=== PATIENT | male | born 1965 | race Caucasian/White ===

== ENCOUNTER 2019-02-20 18:44 | Inpatient (IN) | payer OTHER ==
--- NOTE | 2019-02-20 19:21 | PDOC ---
History of Present Illness - General Chief Complaint: Blood Pressure Problem Stated Complaint: STROKE - History of Present Illness Initial Comments: 02/20/19 19:27 53 year old man with no signif past medical history presents with a 15 min episode of confusion, slurred speech, L facial droop and R hand numbness that occurred after he watched a disturbing video related to the passing of his son. His reports that he got worked up and started crying and that he became confused. The son noticed the facial droop and the weakness. The symptoms completely resolved after 15 min. The patient currently denies any other symptoms. ROS GENERAL/CONSTITUTIONAL: No fever or chills. No weakness. HEAD, EYES, EARS, NOSE AND THROAT: No sore throat. CARDIOVASCULAR: No chest pain or shortness of breath RESPIRATORY: No cough, wheezing, or hemoptysis. GASTROINTESTINAL: No nausea, vomiting, diarrhea or constipation. GENITOURINARY: No dysuria, frequency, or change in urination. MUSCULOSKELETAL: No joint or muscle swelling or pain. No neck or back pain. SKIN: No rash NEUROLOGIC: No headache, vertigo, loss of consciousness, or change in strength/ sensation. PE GENERAL: Awake, alert, and fully oriented, in no acute distress HEAD: No signs of trauma, normocephalic, atraumatic EYES: PERRLA, + L pupil 2mm, + R pupil 3mm, EOMI, sclera anicteric, conjunctiva clear ENT: ropharynx clear without exudates. Moist mucosa NECK: Normal ROM, supple LUNGS: No distress, speaks full sentences, clear to auscultation bilaterally HEART: Regular rate and rhythm, normal S1 and S2, no murmurs, rubs or gallops, peripheral pulses normal and equal bilaterally. ABDOMEN: Soft, nontender. No guarding, no rebound. No masses EXTREMITIES : Normal inspection, Normal range of motion, no edema. No clubbing or cyanosis. NEUROLOGICAL: Cranial nerves II through XII grossly intact. Normal speech, normal gait, no focal sensorimotor deficits, no sensation deficit on the face, arms or legs. no ataxia on finger to nose or walking, SKIN: Warm, Dry, normal turgor, no rashes or lesions noted MDM DDX including but not limited to: TIA r/o CVA Scores: ABCD2 score of 4 ED Course: Stroke work up bp repeat 165/122 In regards to pupil discrepancy, he reports he had a nail to the L eye previously, however reports that his pupils do not normally look unequal EKG: nsr at 79bpm, T wave inversion, v3,v4,v5 (prior ekg noted nonspecifc t wave changes) CT: with no acute pathology CXR: no noted infiltrate or ptx Dr. Crain consulted, discussed recommends crestor, and full dose ASA and admit for MRI in the AM microblog sent, plan for admission Minoo Walker, PGY2 Emergency Medicine 02/20/19 20:39 tPA Exclusion Checklist 0-3hr - Time Elapsed Date last known well: 02/20/19 Time last known well: 18:30 Elaspsed time: Day(s) and 2 Hour(s) and 8 Minutes - Thrombolytic Therapy Candidate Is the patient eligible for Thrombolytic Therapy?: Yes - Exclusion Criteria 0-3hr SBP greater than 185 or DBP greater than 110mmHg despite tx: Yes Recent IC/spinal surgery,head trauma or stroke w/in last 3mo: No Hx of previous IC hemorrhage, IC neoplasm, AVM or aneurysm: No Active internal bleeding: No Blding diathesis(low plt ct, inc PTT,INR>1.7 or use of NOAC): No Symptoms suggest subarachnoid hemorrhage: No CT demonstrates multilobar infarct(>1/3 cerebral hemiphere): No Arterial puncture at noncompressible site in previous 7 days: No Blood glucose concentration less than 50mg/dL (2.7mmol/L): No - Relative Exclusion Criteria 0-3h : No Patient/family refused: No Rapid improvement: Yes Stroke severity too mild: Yes Recent acute OH (w/in previous 3 months): No Seizure at onset with postictal residual neuro impairments: No Major surgery or serious trauma w/in previous 14 days: No Recent GI or hemorrhage (w/in previous 21 days): No - Ineligibility reason(s) Reasons No tPA given: See reason(s) noted above NIH Stroke Scale - Last Known Well Date/Time & Onset Date Last Known Well: 02/20/19 Time Last Known Well: 18:30 - Initial Evaluation Level of consciousness: Alert Ask patient the month and their age: Answers both correctly Ask patient to open & close eyes; make fist and let go: Obeys both correctly Best gaze (horizontal eye movement): Normal Visual field testing: No visual field loss Facial paresis (Show teeth/raise eyebrows/close eyes tight): Normal symmetrical movement Motor Function: Left Arm: Normal Motor Function: Right Arm: Normal (extends arm 90 (or 45) degrees for 10 seconds without drift Motor Function: Left Leg: Normal (extends leg 30 degrees for 5 seconds without drift) Motor Function: Right Leg: Normal (extends leg 30 degrees for 5 seconds without drift) Limb Ataxia: No ataxia Sensory(Use pinprick test arms,legs,trunk,face/side to side): Normal Best language (Describe picture, name items, read sentences): No Aphasia Dysarthria (read several words): Normal articulation Extinction and Inattention: No abnormality - Total Score NIH Stroke Scale Score: 0 Past History - Past Medical History Allergies/Adverse Reactions: Allergies Allergy/AdvReac Type Severity Reaction Status Date / Time No Known Allergies Allergy Verified 03/29/14 18:22 Home Medications: Ambulatory Orders Celecoxib [Celebrex] 200 mg PO DAILY 12/29/13 Cyclobenzaprine HCl [Flexeril -] 10 mg PO TID 12/29/13 Fluticasone Propionate [Flovent Hfa] 10.6 gm IH PRN PRN 12/29/13 Metaxalone [Skelaxin] 800 mg PO TID 12/29/13 Mobile-3 Acid Ethyl Esters [Lovaza -] 1,000 mg PO TID 12/29/13 Ranitidine [Zantac -] 150 mg PO DAILY 12/29/13 Clonidine HCl 0.5 mg PO BID 03/29/14 Nortriptyline HCl [Pamelor -] 10 mg PO HS 03/29/14 Asthma: Yes COPD: No HTN: Yes (Only "white coat hypertension" !!, no meds.) Psychiatric Problems: Yes (PTSD, ANXIETY) - Psycho Social/Smoking Cessation Hx Smoking History: Unknown if ever smoked Have you smoked in the past 12 months: No Information on smoking cessation initiated: No Hx Alcohol Use: No Drug/Substance Use Hx: No Substance Use Type: None *Physical Exam - Vital Signs Last Vital Signs Temp Pulse Resp BP Pulse Ox 90 18 202/94 H 98 02/20/19 18:58 02/20/19 18:58 02/20/19 18:58 02/20/19 18:58 Vital Signs - Vital Signs #1 Time: 19:25 Blood Pressure: 165/122 BP Location: Left Arm Blood Pressure Position: Sitting ED Treatment Course - LABORATORY CBC & Chemistry Diagram: 02/20/19 19:30 02/20/19 19:30
[2019-02-20 19:55] LABS: BASO % 0.6 % (0-2.0); HEMATOCRIT 46.2 % (35.4-49); HEMOGLOBIN 15.4 GM/dL (11.7-16.9); LYMPH % 23.3 % (8-40); MCH 29.6 pg (25.7-33.7); MCHC 33.3 g/dl (32.0-35.9); MEAN CELL VOLUME 88.9 fl (80-96); MEAN PLT VOLUME 8.9 fl (7.5-11.1); MONO % 7.1 % (3.8-10.2); PLATELET COUNT 245 K/MM3 (134-434); RDW 13.8 % (11.9-15.9); WHITE BLOOD COUNT 8.2 K/mm3 (4.0-10.0)
--- NOTE | 2019-02-20 20:08 | PDOC ---
Attending Attestation - Resident Resident Name: Minoo Walker - ED Attending Attestation I have performed the following: I have examined & evaluated the patient, The case was reviewed & discussed with the resident, I agree w/resident's findings & plan - HPI HPI: 02/20/19 20:06 see resident hpi - Physicial Exam PE: 02/20/19 20:06 agree with resident exam - Medical Decision Making [id number] male with right arm weakness and aphasia and left facial droop witnessed by family, now improved Code licea activated on arrival CT scan of the brain is negative Plan for neurology phone consultation and admission to medical service Patient is now with muscle strength 5 out of 5 all extremities, sensory intact There is minimal left lower lid droop on exam
[2019-02-20] MEDS ORDERED: ROSUVASTATIN CA 5 MG TABLET (FP) PO ONE (20:16)
[2019-02-20] MEDS ORDERED: ASPIRIN 81 MG CHEWABLE TABLETS PO ONE (20:17)
[2019-02-20] MEDS ORDERED: ASPIRIN 81 MG CHEWABLE TABLETS ONE (20:27)
[2019-02-20 20:32] LABS: ALK PHOS 74 U/L (45-117); ANION GAP 6 MMOL/L (8-16); BILIRUBIN,TOTAL 0.3 mg/dL (0.2-1); BLOOD UREA NITROGEN 17.4 mg/dL (7-18); CHLORIDE 107 mmol/L (98-107); CHOLESTEROL 170 mg/dL (50-200); CO2 27 mmol/L (21-32); CREATININE 0.9 mg/dL (0.55-1.3); GLUCOSE,RANDOM 146 mg/dL (74-106); HDL CHOLESTEROL 43 mg/dL (40-60); LDL CHOLESTEROL (ONLY SJRH) 112 mg/dL (5-100); POTASSIUM 4.1 mmol/L (3.5-5.1); SGOT/AST 15 U/L (15-37); SGPT/ALT 34 U/L (13-61); SODIUM 140 mmol/L (136-145); TRIGLYCERIDES 90 mg/dL (0-150)
--- NOTE | 2019-02-20 20:57 | CON.NEURO ---
Consult Consult Specialty:: Dorota Referred by:: ER - History of Present Illness History of Present Illness: 53 year sold man with PMH CAD HTN and back pain came in with facial weakness and arm weakness [facility] NIHSS was zero BP slightly high admitted for observation No TPA - Alcohol/Substance Use Hx Alcohol Use: No - Smoking History Smoking history: Unknown if ever smoked Have you smoked in the past 12 months: No Home Medications - Allergies Allergies/Adverse Reactions: Allergies Allergy/AdvReac Type Severity Reaction Status Date / Time No Known Allergies Allergy Verified 03/29/14 18:22 - Home Medications Home Medications: Ambulatory Orders Fluticasone Propionate [Flovent Hfa] 10.6 gm IH PRN PRN 12/29/13 Physical Exam-Neuro Vital Signs: Vital Signs Temperature Pulse Rate 76 02/20/19 20:25 Respiratory Rate 20 02/20/19 20:25 Blood Pressure 165/122 H 02/20/19 20:40 O2 Sat by Pulse Oximetry (%) 98 02/20/19 20:25 Labs: CBC, BMP 02/20/19 19:30 02/20/19 19:30 - Neuro Exam Level Of Consciousness: Yes: Oriented to Person, Oriented to Place, Oriented to Time Eyes: Yes: PERRLA Speech: WNL Dominant Hand: Right Cranial Nerves II-XII Intact: Yes Gag: Present Response to light touch: Normal Response to pain prick: Normal Response to temperature: Normal Response to vibration: Normal Motor Strength: 3/5: Right Arm, Left Leg, Right Leg, Left Arm Imaging - Results Cat Scan: Image Reviewed Problem List - Problems (1) CVA (cerebral vascular accident) Assessment/Plan: ?? [place] cVA MRI brain no Paramjit ASA Statin TCD as utpatient Thanks Marlen Raya MD Code(s): I63.9 - CEREBRAL INFARCTION, UNSPECIFIED
[2019-02-20 21:29] LABS: URINE APPEARANCE CLEAR; URINE BILIRUBIN NEGATIVE (NEGATIVE); URINE COLOR YELLOW; URINE GLUCOSE (UA) NEGATIVE (NEGATIVE); URINE KETONE TRACE (NEGATIVE); URINE LEUK ESTERASE NEGATIVE (NEGATIVE); URINE NITRITE NEGATIVE (NEGATIVE); URINE PROTEIN NEGATIVE (NEGATIVE)
--- NOTE | 2019-02-20 21:49 | HP ---
Admitting History and Physical - Primary Care Physician PCP: Dr. García - Admission Chief Complaint: BP elevated, slurred speech, left side facial drop History of Present Illness: 53 year old man with h/o of Asthma, GERD, Migraine, ? white coat syndrome ( denies taking any medication, BP never high at home) noted today with a 15 min episode of confusion, slurred speech, L facial droop and R hand numbness that occurred after he watched a disturbing video related to the passing of his son. /son present and noted with changes. The symptoms completely resolved after 15 min. The patient currently denies any other symptoms. History Source: Patient, Family Member Limitations to Obtaining History: No Limitations - Past Medical History Cardiovascular: Yes: HTN (" white coat syndrome" Only) Pulmonary: Yes: Asthma Gastrointestinal: Yes: GERD - Past Surgical History Past Surgical History: Yes: None - Smoking History Smoking history: Unknown if ever smoked Have you smoked in the past 12 months: No - Alcohol/Substance Use Hx Alcohol Use: No History of Substance Use: reports: None - Social History Usual Living Arrangement: Yes: With Spouse ADL: Independent Home Medications - Allergies Allergies/Adverse Reactions: Allergies Allergy/AdvReac Type Severity Reaction Status Date / Time No Known Allergies Allergy Verified 03/29/14 18:22 - Home Medications Home Medications: Ambulatory Orders Celecoxib [Celebrex] 200 mg PO DAILY 12/29/13 Cyclobenzaprine HCl [Flexeril -] 10 mg PO TID 12/29/13 Fluticasone Propionate [Flovent Hfa] 10.6 gm IH PRN PRN 12/29/13 Metaxalone [Skelaxin] 800 mg PO TID 12/29/13 Amberson-3 Acid Ethyl Esters [Lovaza -] 1,000 mg PO TID 12/29/13 Ranitidine [Zantac -] 150 mg PO DAILY 12/29/13 Clonidine HCl 0.5 mg PO BID 03/29/14 Nortriptyline HCl [Pamelor -] 10 mg PO HS 03/29/14 Family Medical History Family History: Denies Review of Systems - Review of Systems Constitutional: reports: No Symptoms Eyes: reports: No Symptoms HENT: reports: No Symptoms Neck: reports: No Symptoms Cardiovascular: reports: No Symptoms Respiratory: reports: No Symptoms Gastrointestinal: reports: No Symptoms Genitourinary: reports: No Symptoms Musculoskeletal: reports: No Symptoms Integumentary: reports: No Symptoms Neurological: reports: Change in Speech (slurred speech), Confusion, Numbness ( left hand numbness), Other (left side facial droop) Endocrine: reports: No Symptoms Hematology/Lymphatic: reports: No Symptoms Psychiatric: reports: No Symptoms Physical Examination Vital Signs: Vital Signs Temperature Pulse Rate 76 02/20/19 20:25 Respiratory Rate 20 02/20/19 20:25 Blood Pressure 165/122 H 02/20/19 20:40 O2 Sat by Pulse Oximetry (%) 98 02/20/19 20:25 Constitutional: Yes: No Distress, Calm Eyes: Yes: EOM Intact, PERRL, Other ( + L pupil 2mm, + R pupil 3mm) HENT: Yes: Atraumatic, Normocephalic Neck: Yes: Supple, Trachea Midline Cardiovascular: Yes: Regular Rate and Rhythm Respiratory: Yes: Regular, CTA Bilaterally Gastrointestinal: Yes: Normal Bowel Sounds, Soft Musculoskeletal: Yes: WNL Extremities: Yes: WNL Edema: No Peripheral Pulses WNL: Yes Neurological: Yes: Alert, Oriented, Other (normal speech, strength UE/LE, no sensation/ preception deficit noted) Labs: CBC, BMP 02/20/19 19:30 02/20/19 19:30 Imaging - Results Chest X-ray: Report Reviewed (CXR: no infiltrate) Cat Scan: Report Reviewed (CT: with no acute pathology) EKG: Report Reviewed (EKG: nsr at 79bpm, T wave inversion, v3,v4,v5 ( noted on prior read)) Problem List - Problems (1) CVA (cerebral vascular accident) Code(s): I63.9 - CEREBRAL INFARCTION, UNSPECIFIED (2) White coat syndrome without diagnosis of hypertension Code(s): R03.0 - ELEVATED BLOOD-PRESSURE READING, W/O DIAGNOSIS OF HTN (3) Hypertension Code(s): I10 - ESSENTIAL (PRIMARY) HYPERTENSION (4) GERD (gastroesophageal reflux disease) Code(s): K21.9 - GASTRO-ESOPHAGEAL REFLUX DISEASE WITHOUT ESOPHAGITIS (5) Asthma Code(s): J45.909 - UNSPECIFIED ASTHMA, UNCOMPLICATED Assessment/Plan 53 year old man with h/o of Asthma, GERD, Migraine, ? white coat syndrome ( denies taking any medication, BP never high at home) noted today with a 15 min episode of confusion, slurred speech, L facial droop and R hand numbness that occurred after he watched a disturbing video related to the passing of his son. /son present and noted with changes. The symptoms completely resolved after 15 min. The patient currently denies any other symptoms. #? CVA vs TIA admit to tele Scores: ABCD2 score of 4 EKG:NSR @ 79bpm, T wave inversion, v3,v4,v5 (noted on prior EKG) CT: no acute pathology CXR: no infiltrate Case discussed by ED with Dr. Crain recelizabeth crestor, and full dose ASA- given will continue with ASA and Crestor follow up MRI brain in Am neurology to follow in AM safety/fall precaution monitor BP closely #Elevated BP #White coat syndrome - patient denies elevated Bp at home, no meds - denies sob/cp, no headache or any symptoms at this time - if stay above 160/110, will medicate - BP rechecked @ 22:00 (improved 145/88) - monitor BP closely # GERD - continue with Pepcid daily # Asthma - continue with albuterol PRN Diet: low sodium diet VTE: heparin SQ TID Dispo: Telemetry Visit type - Emergency Visit Emergency Visit: Yes ED Registration Date: 02/20/19 Care time: The patient presented to the Emergency Department on the above date and was hospitalized for further evaluation of their emergent condition. - New Patient This patient is new to me today: Yes Date on this admission: 02/20/19 - Critical Care Critical Care patient: No
[2019-02-20] MEDS ORDERED: ALBUTEROL SO4 8 GM HFA INHALER IH PRN (22:18)
[2019-02-20] MEDS ORDERED: ACETAMINOPHEN 325 MG TABLET (FP) PO PRN (22:21)
[2019-02-21 06:41] LABS: HEMATOCRIT 43.9 % (35.4-49); HEMOGLOBIN 14.9 GM/dL (11.7-16.9); MEAN CELL VOLUME 88.2 fl (80-96); MEAN PLT VOLUME 8.8 fl (7.5-11.1); PLATELET COUNT 218 K/MM3 (134-434); RBC 4.98 M/mm3 (4.00-5.60); RDW 13.6 % (11.9-15.9); WHITE BLOOD COUNT 7.1 K/mm3 (4.0-10.0)
[2019-02-21 07:04] LABS: BLOOD UREA NITROGEN 16.7 mg/dL (7-18); CALCIUM 8.8 mg/dL (8.5-10.1); CREATININE 0.8 mg/dL (0.55-1.3); POTASSIUM 4.1 mmol/L (3.5-5.1)
[2019-02-21] MEDS: ASPIRIN COATED 81 MG TABLET.EC PO SCH (10:40)
[2019-02-21] MEDS: FAMOTIDINE 20 MG TABLET PO SCH (10:40)
--- NOTE | 2019-02-21 11:20 | PN ---
Progress Note, Physician Chief Complaint: HTN CVA History of Present Illness: Previous notes and events reviewed awake and alert NAD pending Brain MRI denies chest pain or SOB - Current Medication List Current Medications: Active Medications Acetaminophen (Tylenol -) 650 mg PO Q6H PRN PRN Reason: PAIN LEVEL 1-5 Albuterol Sulfate (Ventolin Hfa Inhaler -) 2 puff IH Q4H PRN PRN Reason: SHORT OF BREATH/WHEEZING Aspirin (Ecotrin -) 81 mg PO DAILY COUNTS INCLUDE 234 BEDS AT THE [facility] Last Admin: 02/21/19 10:40 Dose: 81 mg Famotidine (Pepcid -) 20 mg PO DAILY COUNTS INCLUDE 234 BEDS AT THE [facility] Last Admin: 02/21/19 10:40 Dose: 20 mg Heparin Sodium (Porcine) (Heparin -) 5,000 unit SQ TID COUNTS INCLUDE 234 BEDS AT THE [facility] Rosuvastatin Calcium (Crestor -) 10 mg PO [facility] - Objective Vital Signs: Vital Signs Temperature 97.7 F 02/21/19 10:38 Pulse Rate 82 02/21/19 10:38 Respiratory Rate 20 02/21/19 06:56 Blood Pressure 163/101 H 02/21/19 10:38 O2 Sat by Pulse Oximetry (%) 96 02/21/19 10:38 Constitutional: Yes: No Distress, Calm Eyes: Yes: Conjunctiva Clear HENT: Yes: Atraumatic Cardiovascular: Yes: Regular Rate and Rhythm Respiratory: Yes: Regular, CTA Bilaterally Gastrointestinal: Yes: Normal Bowel Sounds, Soft Extremities: Yes: WNL Edema: No Neurological: Yes: Alert, Oriented, Other (normal speech, no facial droop) Psychiatric: Yes: Alert, Oriented Labs: CBC, BMP 02/21/19 05:40 02/21/19 05:40 - ....Imaging Cat Scan: Report Reviewed Problem List - Problems (1) Asthma Assessment/Plan: -Bronchodilators -Keep SpO2 >90% -O2 via [place] Code(s): J45.909 - UNSPECIFIED ASTHMA, UNCOMPLICATED (2) CVA (cerebral vascular accident) Assessment/Plan: -Neurology on board -Cardiology consult -tele monitoring -Head CT scan shows no evidence of acute intracranial hemorrhage, edema, midline shift, mass effect, skull fracture, no CT evidence of acute territorial infarction -pending brain MRI -Aspirin, Crestor -Carotid US -lipid panel Code(s): I63.9 - CEREBRAL INFARCTION, UNSPECIFIED (3) GERD (gastroesophageal reflux disease) Assessment/Plan: -Famotidine Code(s): K21.9 - GASTRO-ESOPHAGEAL REFLUX DISEASE WITHOUT ESOPHAGITIS (4) Hypertension Assessment/Plan: -Cardiology consult -monitor BP -low Na diet Code(s): I10 - ESSENTIAL (PRIMARY) HYPERTENSION Assessment/Plan see problem list dvt ppx
--- NOTE | 2019-02-21 11:29 | EKG ---
Test Reason : Blood Pressure : / mmHG Vent. Rate : 079 BPM Atrial Rate : 079 BPM P-R Int : 182 ms QRS Dur : 112 ms QT Int : 376 ms P-R-T Axes : 039 -18 006 degrees QTc Int : 431 ms NORMAL SINUS RHYTHM T WAVE ABNORMALITY, CONSIDER ANTERIOR ISCHEMIA ABNORMAL ECG WHEN COMPARED WITH ECG OF 07-DEC-2006 16:43, T WAVE VARIATION Confirmed by ALEX GARZA MD ([id number]) on 02/21/2019 11:28:51 AM Referred By: Confirmed By:ALEX GARZA MD
--- NOTE | 2019-02-21 13:38 | CON.CARD ---
Consult Consult Specialty:: Cardioklogy Referred by:: Ricky Reason for Consultation:: Transient confusion,blurred vision. - History of Present Illness Chief Complaint: presenting with transuient confusion, visions changes and right UE weakness. Denied cp,sob, palpitations. History of Present Illness: 53 male, htn on no meds, asthma,gerd, migraines, now presenting with transuient confusion, visions changes and right UE weakness. Denied cp,sob, palpitations. - Past Medical History Cardio/Vascular: Yes: HTN (" white coat syndrome" Only) Pulmonary: Yes: Asthma Gastrointestinal: Yes: GERD - Past Surgical History Past Surgical History: Yes: None - Alcohol/Substance Use Hx Alcohol Use: No History of Substance Use: reports: None - Smoking History Smoking history: Unknown if ever smoked Have you smoked in the past 12 months: No - Social History ADL: Independent Home Medications - Allergies Allergies/Adverse Reactions: Allergies Allergy/AdvReac Type Severity Reaction Status Date / Time No Known Allergies Allergy Verified 03/29/14 18:22 - Home Medications Home Medications: Ambulatory Orders Fluticasone Propionate [Flovent Hfa] 10.6 gm IH PRN PRN 12/29/13 Review of Systems - Review of Systems Constitutional: reports: No Symptoms Eyes: reports: No Symptoms HENT: reports: No Symptoms Neck: reports: No Symptoms Cardiovascular: reports: No Symptoms Respiratory: reports: No Symptoms Gastrointestinal: reports: No Symptoms Genitourinary: reports: No Symptoms Breasts: reports: No Symptoms Reported Musculoskeletal: reports: No Symptoms Integumentary: reports: No Symptoms Hematology/Lymphatic: reports: No Symptoms Psychiatric: reports: No Symptoms Vital Signs: Vital Signs Temperature 97.7 F 02/21/19 10:38 Pulse Rate 82 02/21/19 10:38 Respiratory Rate 20 02/21/19 06:56 Blood Pressure 163/101 H 02/21/19 10:38 O2 Sat by Pulse Oximetry (%) 96 02/21/19 10:38 Constitutional: Yes: Well Nourished, No Distress, Calm Eyes: Yes: WNL, Conjunctiva Clear, EOM Intact HENT: Yes: WNL, Atraumatic, Normocephalic Neck: Yes: WNL, Supple, Trachea Midline Respiratory: Yes: WNL, Regular, CTA Bilaterally Gastrointestinal: Yes: WNL, Normal Bowel Sounds, Soft Renal/: Yes: WNL Cardiovascular: Yes: WNL, Regular Rate and Rhythm JVD: No Carotid Bruit: No PMI: Non-Displaced Heart Sounds: Yes: S1, S2 Musculoskeletal: Yes: WNL Extremities: Yes: WNL Edema: No Peripheral Pulses WNL: Yes Peripheral Pulses: 2+ Left Carotid, 2+ Right Carotid, 2+ Left Femoral, 2+ Right Femoral, 2+ Left Popliteal, 2+ Right Popliteal, 2+ Left Doralis Pedis, 2+ Right Dorsalis Pedis Integumentary: Yes: WNL Neurological: Yes: WNL, Alert, Oriented ...Motor Strength: WNL Psychiatric: Yes: WNL - Other Data Labs, Other Data: CBC, BMP 02/21/19 05:40 02/21/19 05:40 Troponin, BNP 02/20/19 19:30 Troponin I < 0.02 Troponin, BNP 02/20/19 19:30 Troponin I < 0.02 Assessment/Plan 53 male, htn on no meds, asthma,gerd, migraines, now presenting with transuient confusion, visions changes and right UE weakness. Denied cp,sob, palpitations. Symptoms completely resolved. No cardiac symptoms. The PT is in NSR WITH PRECORDIAL t WAVE CHANGES. Would star norvasc mg daily for BP control. Give ASA 81mg Check lipid panel and treat accordingly. Pls obtain a TTE. Would monitor for further 24h. Cardiac stable
[2019-02-21] MEDS ORDERED: HEPARIN NA (PORCINE) 5,000 UNITS/ML 1ML VIAL ONE (13:49)
--- NOTE | 2019-02-21 14:10 | CONSULT ---
Admitting History and Physical - Admission History of Present Illness: 53 year old man with h/o of Asthma, GERD, Migraine, ? white coat syndrome with a 15 min episode of confusion, slurred speech, L facial droop and R hand numbness/clumsiness that occurred after he watched a disturbing video of his son. Pending MRI. History Source: Patient, Family Member Limitations to Obtaining History: No Limitations - Past Medical History Cardiovascular: Yes: HTN (" white coat syndrome" Only) Pulmonary: Yes: Asthma Gastrointestinal: Yes: GERD - Past Surgical History Past Surgical History: Yes: None - Smoking History Smoking history: Unknown if ever smoked Have you smoked in the past 12 months: No - Alcohol/Substance Use Hx Alcohol Use: No History of Substance Use: reports: None - Social History ADL: Independent History - Admission Reason For Visit: TRANSIENT NEUROLOGIC DEFICIT - Diagnostics X-ray: Report Reviewed CT Scan: Report Reviewed MRI: Pending - General Mental Status: Alert and Oriented, Awake and Alert, Able to Follow Commands Attention: Intact Ability to Follow Directions: Excellent Head/Neck Control: WFL - Hearing Hearing: Functional Speech Evaluation - Communication Primary Language: MARSHALLESE Communication: Yes: Within Normal Limits Oral Expression Ability: Yes: No Impairment - Speech Production Able to Make Needs Known: Yes: WNL Intelligibility: Yes: WNL - Speech Characteristics Voice Loudness: Normal Voice Pitch: Yes: Normal Voice Phonatory-based Quality: Yes: Normal Speech Pattern: Normal Speech Clarity: < 100% Nasal Resonance: Normal Articulation: Yes: Precise - Language/Auditory Comprehension Follows: Yes: 2 Stage Simple Commands Observation: Able to respond to yes/no queries: Yes, Yes/No Confusion: No, Comprehends Conversational Speech: Yes - Language/Verbal Expression Able to Respond to Simple Queries: Yes: WNL Able to Communicate Wants and Needs: Yes: WNL Functional Communication Status: Yes: WNL - Memory/Perception terminal press operator Memory: Yes: WNL Short Term Memory: Yes: WNL - Swallow Evaluation/Bedside Assessment Current Nutritional Intake: Regular, Thin Liquids, Other (Family bringing chopped salads eg chicken salad, etc. Missing upper teeth. Worked at [employer]. Required Steroids.) Dentition: Yes: Missing Teeth Facial Symmetry on Retraction: Symmetrical Facial Movement: Controlled Against Resistance Opening: Normal Against Resistance Closing: Normal Pucker Lips: Normal Smile: Normal Lingual Movement: Normal, Symmetric Lingual Speed of Movement: Normal Lingual Movement Strgth Against Opposition: Normal Lingual Movement Characteristics: Normal Velopharyngeal Movement: Normal Laryngeal Elevation: WFL Laryngeal Movement: Able to Palpate Rate of Intake: WFL Bolus Size: WFL Labial Seal: WFL Chewing: WFL (missing dentition) Oral Prep Time: WFL A-P Transit: WFL Timing of Swallow: WFL Coughing/Throat Clear: No Change in Voice: No Recommendations - Speech Evaluation, Impression/Plan Impression: Speech,language swallowing ,cognition intact. Missing dentition adversely affects biting off food. - Dysphagia Impressions/Plan Swallowing Skills: WFL Dysphagia Impressions: No Impairment *Silent aspiration: cannot be R/O at bedside Recommendations: Other (RD consult) - Recommendations Diet Consistency: Regular (Pt likes soft to chew and egg/tuna/chicken salads and soups due to missing dentition) Medication Administration: Whole with water Liquids: Thin Liquids
[2019-02-21] MEDS: HEPARIN NA (PORCINE) 5,000 UNITS/ML 1ML VIAL SQ SCH ×3 (14:24→21:20)
[2019-02-21 14:53] VITALS: BMI 28.2
[2019-02-21] MEDS ORDERED: PNEUMOC 13-VAL CONJ-DIP CRM/PF 0.5 ML DISP.SYRIN IM ONE (14:53)
[2019-02-21] MEDS ORDERED: ALPRAZolam 1 MG TABLET PO ONE (16:08)
[2019-02-21] MEDS ORDERED: PNEUMOCOCCAL 23 VACCINE 0.5 ML VIAL IM ONE (16:15)
[2019-02-21] MEDS ORDERED: amLODIPine BESYLATE 5 MG TABLET (FP) PO ONE (19:41)
[2019-02-21] MEDS ORDERED: ROSUVASTATIN CA 10 MG TABLET (FP) PO SCH (22:00)
[2019-02-22] MEDS: HEPARIN NA (PORCINE) 5,000 UNITS/ML 1ML VIAL SQ SCH (06:08)
[2019-02-22 06:12] VITALS: TEMP 98.2
[2019-02-22 08:36] VITALS: BP 153/90; PULSE 74
[2019-02-22] MEDS: ASPIRIN COATED 81 MG TABLET.EC PO SCH (09:14)
[2019-02-22] MEDS: FAMOTIDINE 20 MG TABLET PO SCH (09:14)
--- NOTE | 2019-02-22 09:53 | PN ---
Progress Note, Physician History of Present Illness: seen and examined today in [facility]. no overnight events. no new complaints. - Current Medication List Current Medications: Active Medications Acetaminophen (Tylenol -) 650 mg PO Q6H PRN PRN Reason: PAIN LEVEL 1-5 Albuterol Sulfate (Ventolin Hfa Inhaler -) 2 puff IH Q4H PRN PRN Reason: SHORT OF BREATH/WHEEZING Amlodipine Besylate (Norvasc -) 5 mg PO DAILY [facility] Last Admin: 02/22/19 09:14 Dose: 5 mg Aspirin (Ecotrin -) 81 mg PO DAILY [facility] Last Admin: 02/22/19 09:14 Dose: 81 mg Famotidine (Pepcid -) 20 mg PO DAILY [facility] Last Admin: 02/22/19 09:14 Dose: 20 mg Heparin Sodium (Porcine) (Heparin -) 5,000 unit SQ TID [facility] Last Admin: 02/22/19 06:08 Dose: 5,000 unit Rosuvastatin Calcium (Crestor -) 10 mg PO HS [facility] Last Admin: 02/21/19 21:20 Dose: 10 mg - Objective Vital Signs: Vital Signs Temperature 98.2 F 02/22/19 08:32 Pulse Rate 74 02/22/19 08:32 Respiratory Rate 18 02/22/19 08:32 Blood Pressure 153/90 02/22/19 08:32 O2 Sat by Pulse Oximetry (%) 99 02/21/19 21:00 Constitutional: Yes: No Distress, Calm Eyes: Yes: Conjunctiva Clear, EOM Intact HENT: Yes: Atraumatic, Normocephalic Neck: Yes: Supple, Trachea Midline Cardiovascular: Yes: Regular Rate and Rhythm, S1, S2. No: Bradycardia, Tachycardia, Pulse Irregular, Bruit, JVD, Gallop, Murmur, Rub, S3, S4, Varicosities Respiratory: Yes: Regular, CTA Bilaterally. No: Rales, Rhonchi, Wheezes Gastrointestinal: Yes: Normal Bowel Sounds, Soft Musculoskeletal: Yes: WNL Extremities: Yes: WNL Edema: No Peripheral Pulses WNL: Yes Peripheral Pulses: Left Doralis Pedis: 2+, Right Dorsalis Pedis: 2+ Neurological: Yes: Alert, Oriented Psychiatric: Yes: Alert, Oriented Labs: CBC, BMP 02/21/19 05:40 02/21/19 05:40 - ....Imaging Chest X-ray: Report Reviewed, Image Reviewed EKG: Report Reviewed, Image Reviewed Other: Report Reviewed, Image Reviewed (tele-nsr, no sig arrhythmias recorded) Assessment/Plan 53 male, htn on no meds, asthma,gerd, migraines, now presenting with transuient confusion, visions changes and right UE weakness. Denied cp,sob, palpitations. Symptoms completely resolved. No cardiac symptoms. The PT is in NSR TIA -BP better controlled, above long-term goal but adequate for now -cont amlodipine 5mg daily -close outpatient fup of HTN -receiving ASA 81mg daily and crestor -no sig events on tele -fup echo results -if echo wnl pt is acceptable for discharge from a cardiac standpoint -[facility] outpatient fup and consideration for longer term event monitoring for occult arrhythmia
[2019-02-22] MEDS ORDERED: amLODIPine BESYLATE 5 MG TABLET (FP) PO SCH (10:00)
--- NOTE | 2019-02-22 10:28 | ECHO ---
Version: 1 Name: YULIA JEWELL Exam: Adult Echocardiogram Study Date: 02/22/2019, 8:39 AM Age: 53 Years MMode/2D Measurements & Calculations IVSd: 1.10 cm LVIDs: 3.8 cm LVIDd: 5.1 cm LVPWd: 1.02 cm LAV (MOD-bp): 60.5 ml LVOT diam: 2.48 cm Ao root diam: 3.1 cm LA dimension: 4.4 cm Doppler Measurements & Calculations MV E max ramon: 60.1 cm/sec Med E/e': 8.1 MV A max ramon: 85.9 cm/sec Med Peak E' Ramon: 7.4 cm/sec MV E/A: 0.70 Lat E/e': 8.6 Lat Peak E' Ramon: 7.0 cm/sec Ao max P.7 mmHg Ao V2 max: 96.4 cm/sec Left Ventricle The left ventricular size, thickness and function are normal. Ejection Fraction = 60%. The transmitr al spectral Doppler flow pattern is suggestive of impaired LV relaxation. Right Ventricle The right ventricle is normal in size and function. Atria The left atrium is mildly dilated. Right atrial size is normal. Mitral Valve The mitral valve is normal in structure and function. There is trace mitral regurgitation. Tricuspid Valve The tricuspid valve is normal in structure and function. There is Trace to mild tricuspid regurgitat ion. Aortic Valve The aortic valve is normal in structure and function. Pulmonic Valve The pulmonic valve is not well seen, but is grossly normal. Great Vessels The aortic root is normal size. Normal aortic arch, descending and ascending aorta. Pericardium/Pleura There is no pericardial effusion. Summary Statements The left ventricular size, thickness and function are normal Ejection Fraction = 60%. The transmitral spectral Doppler flow pattern is suggestive of impaired LV relaxation. The right ventricle is normal in size and function. The left atrium is mildly dilated. Right atrial size is normal. The mitral valve is normal in structure and function. There is trace mitral regurgitation. The tricuspid valve is normal in structure and function. There is Trace to mild tricuspid regurgitation. The aortic valve is normal in structure and function. The pulmonic valve is not well seen, but is grossly normal. The aortic root is normal size. Normal aortic arch, descending and ascending aorta There is no pericardial effusion. Howard Solis 02/22/2019, 10:27 AM Ordering Physician: Ric García Performed By: Alysia Saeed
--- NOTE | 2019-02-22 11:39 | DS ---
Physical Examination Vital Signs: Vital Signs Temperature 98.2 F 02/22/19 08:32 Pulse Rate 74 02/22/19 08:32 Respiratory Rate 18 02/22/19 09:00 Blood Pressure 153/90 02/22/19 08:32 O2 Sat by Pulse Oximetry (%) 99 02/22/19 09:00 Findings/Remarks: AWAKE ALERT NAD MRI BRAIN NORMAL Constitutional: Yes: No Distress Cardiovascular: Yes: Regular Rate and Rhythm Respiratory: Yes: WNL Gastrointestinal: Yes: WNL Musculoskeletal: Yes: WNL Extremities: Yes: WNL Edema: No Peripheral Pulses WNL: Yes Integumentary: Yes: WNL Wound/Incision: Yes: Clean/Dry Neurological: Yes: WNL ...Motor Strength: WNL Psychiatric: Yes: WNL Labs: CBC, BMP 02/21/19 05:40 02/21/19 05:40 Discharge Summary Problems reviewed: Yes Reason For Visit: TRANSIENT NEUROLOGIC DEFICIT Current Active Problems Asthma (Acute) CVA (cerebral vascular accident) (Acute) GERD (gastroesophageal reflux disease) (Acute) Stroke-like symptoms (Acute) White coat syndrome without diagnosis of hypertension (Acute) Procedures: Principal: MRI BRAIN,ECHO,CAROTID DOPPLER Hospital Course: ADMITTED TIA R/O CVA, NORMAL MRI BRAIN , NORMAL ECHO AND CAROTID Plan of Treatment: REDUCE LIPIDS, ASA THERAPY WEIGHT LOSS AND EXERCISE Condition: Good - Instructions Diet, Activity, Other Instructions: LOW SALT AND LOW FAT DIET SEE DR BHAKTA IN 3-4 WEEKS FOR FOLLOW UP Disposition: HOME - Home Medications Comprehensive Discharge Medication List: Ambulatory Orders Fluticasone Propionate [Flovent Hfa] 10.6 gm IH PRN PRN 12/29/13 Acetaminophen [Tylenol .Regular Strength -] 650 mg PO Q6H PRN tablet 02/22/19 Albuterol Sulfate Inhaler - [Ventolin HFA Inhaler -] 2 puff IH Q4H PRN #1 inhaler 02/22/19 Amlodipine Besylate [Norvasc -] 5 mg PO DAILY #30 tablet 02/22/19 Aspirin Coated [Ecotrin -] 81 mg PO DAILY #30 tablet.ec 02/22/19 Famotidine [Pepcid -] 20 mg PO DAILY #30 tablet 02/22/19 Rosuvastatin [Crestor -] 10 mg PO HS #30 tablet 02/22/19 Prescription Drug Monitoring Program (I-STOP) results: I-STOP not reviewed
[2019-02-22] MEDS ORDERED: amLODIPine BESYLATE 5 MG TABLET (FP) PO ONE (19:41)
== END 2019-02-22 11:56 | disposition home or self-care (01) | DRG 47 ==
LOC: JER 18:44 → JERBED 19:36 → J4W 02-21 14:50
PROVIDERS: ADMIT Family Medicine; ATTEND Family Medicine
DX: G45.9 Transient cerebral ischemic attack, unspecified (principal); R29.810 Facial weakness; F43.10 Post-traumatic stress disorder, unspecified; F41.9 Anxiety disorder, unspecified; I10 Essential (primary) hypertension; I25.10 Atherosclerotic heart disease of native coronary artery without angina pectoris; M54.9 Dorsalgia, unspecified; K21.9 Gastro-esophageal reflux disease without esophagitis; G43.909 Migraine, unspecified, not intractable, without status migrainosus; R03.0 Elevated blood-pressure reading, without diagnosis of hypertension
CPT/HCPCS: 36415; 70450-TC; 70551-TC; 71045-TC-FY; 80048; 80053; 81003; 82465; 82550; 83718; 83721; 84478; 84484; 85025; 85027; 86850; 86900; 86901; 90732; 93005; 93010; 93306-TC; 93880-TC; 99285-25; G0009; J1644

== ENCOUNTER 2020-06-08 15:09 | Inpatient (IN) | payer OTHER ==
[2020-06-08] MEDS ORDERED: ACETAMINOPHEN 1000 MG/100 ML VIAL (NON FORMULARY) IVPB ONE ×2 (15:52→21:36)
[2020-06-08] MEDS ORDERED: NICARDIPINE 25 MG in DEXTROSE 5%-WATER - 240 ML IVPB SCH (16:00)
[2020-06-08] MEDS ORDERED: niCARdipine HCL 25 MG/10 ML AMPUL IVPB ONE (16:02)
[2020-06-08] MEDS ORDERED: ACETAMINOPHEN INJECTION 100 ML IVPB ONE (16:02)
[2020-06-08 16:32] LABS: BASO % 0.5 % (0-2.0); EOS % 0.3 % (0-4.5); HEMATOCRIT 40.4 % (35.4-49); HEMOGLOBIN 13.8 GM/dL (11.7-16.9); LYMPH % 23.3 % (8-40); MCH 30.4 pg (25.7-33.7); MCHC 34.3 g/dl (32.0-35.9); MEAN CELL VOLUME 88.6 fl (80-96); MEAN PLT VOLUME 8.6 fl (7.5-11.1); MONO % 9.4 % (3.8-10.2); NEUT % 66.5 % (42.8-82.8); PLATELET COUNT 279 K/MM3 (134-434); RBC 4.55 M/mm3 (4.00-5.60); RDW 13.4 % (11.9-15.9); WHITE BLOOD COUNT 6.3 K/mm3 (4.0-10.0)
[2020-06-08 16:42] LABS: INR 0.88 (0.83-1.09); PROTHROMBIN TIME (PATIENT) 10.9 SEC (9.7-13.0)
[2020-06-08 16:43] LABS: URINE APPEARANCE CLEAR; URINE BILIRUBIN NEGATIVE (NEGATIVE); URINE COLOR YELLOW; URINE GLUCOSE (UA) NEGATIVE (NEGATIVE); URINE KETONE NEGATIVE (NEGATIVE); URINE LEUK ESTERASE NEGATIVE (NEGATIVE); URINE NITRITE NEGATIVE (NEGATIVE); URINE PROTEIN NEGATIVE (NEGATIVE); URINE UROBILINOGEN 0.2 mg/dL (0.2-1.0)
[2020-06-08 16:45] LABS: ACTIVATED PTT 26.5 SECONDS (25.2-36.5)
[2020-06-08 16:47] LABS: CHLORIDE 103 mmol/L (98-107); SODIUM 136 mmol/L (136-145)
[2020-06-08 16:49] LABS: ALBUMIN 3.5 g/dl (3.4-5.0); ANION GAP 7 MMOL/L (8-16); BLOOD UREA NITROGEN 13.1 mg/dL (7-18); CALCIUM 8.8 mg/dL (8.5-10.1); CO2 26 mmol/L (21-32); GLUCOSE,RANDOM 175 mg/dL (74-106)
[2020-06-08 16:52] LABS: SGOT/AST 21 U/L (15-37); SGPT/ALT 50 U/L (13-61)
[2020-06-08 16:53] LABS: CREATININE 0.8 mg/dL (0.55-1.3)
[2020-06-08 16:54] LABS: BILIRUBIN,TOTAL 0.3 mg/dL (0.2-1); CHOLESTEROL 246 mg/dL (50-200); TOT PROT 6.8 g/dl (6.4-8.2); TRIGLYCERIDES 272 mg/dL (0-150)
[2020-06-08 16:55] LABS: ALK PHOS 83 U/L (45-117); LDL CHOLESTEROL (ONLY SJRH) 152 mg/dL (5-100)
[2020-06-08 16:57] LABS: HDL CHOLESTEROL 42 mg/dL (40-60)
[2020-06-08] MEDS ORDERED: ACETAMINOPHEN 325 MG TABLET (FP) PO PRN (18:57)
[2020-06-08] MEDS ORDERED: ONDANSETRON 4 MG/2 ML VIAL IVPUSH ONE (21:27)
[2020-06-08] MEDS ORDERED: ONDANSETRON 4 MG/2 ML VIAL ONE (21:30)
[2020-06-08] MEDS ORDERED: ACETAMINOPHEN 325 MG TABLET (FP) PO ONE (21:33)
[2020-06-08] MEDS ORDERED: IBUPROFEN 800 MG/8 ML IJ IVPB PRN (21:50)
[2020-06-08] MEDS ORDERED: LABETALOL HCL 5 MG/1 ML (100MG/20 ML VIAL) IVPUSH PRN (22:00)
[2020-06-08] MEDS ORDERED: ATORVASTATIN CA 40 MG TABLET (FP) PO SCH (22:00)
[2020-06-08] MEDS: MUPIROCIN 2% TOPICAL OINTMENT FOR DECOLONIZATION NS SCH (22:41)
[2020-06-08] MEDS: ROSUVASTATIN CA 10 MG TABLET (FP) PO SCH (22:42)
[2020-06-08] MEDS: CHLORHEXIDINE GLUCONATE 4% CLEANSER FOR DECOLONIZATION TP SCH (22:42)
[2020-06-08 23:29] VITALS: BMI 34.6
[2020-06-09 06:43] LABS: CALCIUM 8.7 mg/dL (8.5-10.1)
[2020-06-09 06:44] LABS: ALBUMIN 3.7 g/dl (3.4-5.0); MAGNESIUM 1.9 mg/dL (1.8-2.4)
[2020-06-09 06:47] LABS: CREATININE 0.9 mg/dL (0.55-1.3)
[2020-06-09 06:48] LABS: BILIRUBIN,TOTAL 0.7 mg/dL (0.2-1); TOT PROT 6.9 g/dl (6.4-8.2)
[2020-06-09 06:49] LABS: BASO % 0.5 % (0-2.0); EOS % 0.1 % (0-4.5); HEMATOCRIT 42.1 % (35.4-49); HEMOGLOBIN 14.6 GM/dL (11.7-16.9); LYMPH % 19.4 % (8-40); MCH 30.5 pg (25.7-33.7); MCHC 34.7 g/dl (32.0-35.9); MEAN CELL VOLUME 87.9 fl (80-96); MEAN PLT VOLUME 8.5 fl (7.5-11.1); MONO % 8.2 % (3.8-10.2); NEUT % 71.8 % (42.8-82.8); PLATELET COUNT 306 K/MM3 (134-434); RBC 4.79 M/mm3 (4.00-5.60); RDW 13.9 % (11.9-15.9); WHITE BLOOD COUNT 10.9 K/mm3 (4.0-10.0)
[2020-06-09] MEDS: ENOXAPARIN NA (PORCINE) 40 MG/0.4 ML DISP.SYRIN SQ SCH (09:17)
[2020-06-09] MEDS: ASPIRIN 325 MG ENTERIC COATED TABLET (FP) PO SCH (09:18)
[2020-06-09] MEDS: MUPIROCIN 2% TOPICAL OINTMENT FOR DECOLONIZATION NS SCH ×2 (09:18→21:52)
[2020-06-09 09:26] LABS: ERYTHROCYTE SEDIMENTATION RATE 10 mm/hr (0-20)
[2020-06-09] MEDS ORDERED: ASPIRIN COATED 81 MG TABLET.EC PO SCH (10:00)
[2020-06-09] MEDS ORDERED: LORazepam 2 MG/ML SDV VIAL IVPB ONE (11:07)
[2020-06-09] MEDS: LABETALOL HCL 100 MG TABLET (FP) PO SCH ×2 (11:18→21:52)
[2020-06-09] MEDS ORDERED: LORazepam 2 MG/ML SDV VIAL ONE (16:49)
[2020-06-09] MEDS: ROSUVASTATIN CA 10 MG TABLET (FP) PO SCH (21:52)
[2020-06-09] MEDS: CHLORHEXIDINE GLUCONATE 4% CLEANSER FOR DECOLONIZATION TP SCH (21:52)
[2020-06-09 22:54] LABS: URINE AMPHETAMINES NEGATIVE ng/ml (CUTOFF=500); URINE BARBITURATES NEGATIVE ng/ml (CUTOFF=200); URINE BENZODIAZEPINES NEGATIVE ng/ml (CUTOFF=200)
[2020-06-09 22:55] LABS: METHADONE, UR NEGATIVE ng/ml (CUTOFF=300); OPIATES, URI NEGATIVE ng/ml (CUTOFF=300); PHENCYCLIDINE,URINE NEGATIVE ng/ml (CUTOFF=25)
[2020-06-09 23:05] LABS: COCAINE, UR NEGATIVE ng/ml (CUTOFF=300)
[2020-06-10] MEDS ORDERED: PT OWN MED DRAWER 7, Y5N ONE (09:14)
[2020-06-10] MEDS: ENOXAPARIN NA (PORCINE) 40 MG/0.4 ML DISP.SYRIN SQ SCH (09:37)
[2020-06-10] MEDS: LABETALOL HCL 100 MG TABLET (FP) PO SCH (09:37)
[2020-06-10] MEDS: MUPIROCIN 2% TOPICAL OINTMENT FOR DECOLONIZATION NS SCH (09:37)
[2020-06-10] MEDS: ASPIRIN 325 MG ENTERIC COATED TABLET (FP) PO SCH (09:37)
[2020-06-10 12:08] VITALS: BP 122/78; PULSE 80; TEMP 98.6
== END 2020-06-10 12:00 | disposition home or self-care (01) | DRG 79 ==
LOC: JER 15:09 → JERBED 17:42 → JICU 19:46
PROVIDERS: ADMIT Internal Medicine Pulmonary Disease; ATTEND Internal Medicine Pulmonary Disease
DX: I67.4 Hypertensive encephalopathy (principal); I10 Essential (primary) hypertension; E78.5 Hyperlipidemia, unspecified; J45.909 Unspecified asthma, uncomplicated; Z86.16 Personal history of COVID-19; R41.82 Altered mental status, unspecified; K21.9 Gastro-esophageal reflux disease without esophagitis
CPT/HCPCS: 36415; 70450-TC; 70496-TC; 70498-TC; 70551-TC; 80053; 80061; 80307; 81003; 82136; 82550; 82607; 82746; 82962; 83721; 83735; 83918; 84100; 84443; 84484; 85025; 85379; 85610; 85651; 85730; 86780; 86850; 86900; 86901; 87086; 93005; 93010; 93880-TC; 97116-GP; 97161-GP; 99285-25; C9803; J0131; Q9967; U0003; U0005

== ENCOUNTER 2021-04-29 18:10 | Observation (INO) | payer OTHER ==
[2021-04-29 18:21] VITALS: BMI 27.6
[2021-04-29] MEDS ORDERED: SODIUM CHLORIDE 0.9% 1000 ML INFUS.BAG IV ONE (19:45)
[2021-04-29] MEDS ORDERED: ISOSORBIDE MONONITRATE 30 MG TAB.SR.24H (FP) PO ONE (19:52)
[2021-04-29 20:19] LABS: BASO % 0.6 % (0-2.0); EOS % 1.2 % (0-4.5); HEMATOCRIT 43.2 % (35.4-49); HEMOGLOBIN 14.4 GM/dL (11.7-16.9); LYMPH % 27.7 % (8-40); MCH 29.5 pg (25.7-33.7); MCHC 33.4 g/dl (32.0-35.9); MEAN CELL VOLUME 88.4 fl (80-96); MEAN PLT VOLUME 8.9 fl (7.5-11.1); MONO % 7.3 % (3.8-10.2); NEUT % 63.2 % (42.8-82.8); PLATELET COUNT 233 10^3/uL (134-434); RBC 4.88 M/mm3 (4.00-5.60); WHITE BLOOD COUNT 7.9 K/mm3 (4.0-10.0)
[2021-04-29] MEDS ORDERED: ISOSORBIDE MONONITRATE 60 MG TAB.SR.24H (FP) PO ONE (20:19)
[2021-04-29 20:37] LABS: CALCIUM 8.9 mg/dL (8.5-10.1)
[2021-04-29 20:38] LABS: ALBUMIN 3.6 g/dl (3.4-5.0); BLOOD UREA NITROGEN 19.3 mg/dL (7-18)
[2021-04-29 20:41] LABS: CREATININE 0.9 mg/dL (0.55-1.3)
[2021-04-29 20:43] LABS: BILIRUBIN,TOTAL 0.4 mg/dL (0.2-1); TOT PROT 6.5 g/dl (6.4-8.2)
[2021-04-29] MEDS ORDERED: POLYETHYLENE GLYCOL (HEALTHYLAX) 3350 17 GM PACKET PO PRN (21:25)
[2021-04-29] MEDS ORDERED: ACETAMINOPHEN 325 MG TABLET (FP) PO PRN (21:25)
[2021-04-29] MEDS ORDERED: hydrALAZINE HCL 20 MG/ML VIAL IVPUSH ONE ×2 (21:26)
[2021-04-29] MEDS ORDERED: hydrALAZINE HCL 20 MG/ML VIAL ONE (21:36)
[2021-04-30] MEDS ORDERED: ACETAMINOPHEN 1000 MG/100 ML BAG IVPB ONE (02:54)
[2021-04-30] MEDS ORDERED: ACETAMINOPHEN INJECTION 100 ML IVPB ONE (02:59)
[2021-04-30] MEDS ORDERED: ALBUTEROL SO4 HFA INHALER IH PRN (05:43)
[2021-04-30] MEDS ORDERED: NAPROXEN 500 MG TABLET PO PRN ×2 (05:43→06:21)
[2021-04-30 07:37] LABS: BASO % 0.5 % (0-2.0); HEMATOCRIT 42.6 % (35.4-49); HEMOGLOBIN 14.3 GM/dL (11.7-16.9); LYMPH % 18.3 % (8-40); MCH 29.7 pg (25.7-33.7); MCHC 33.6 g/dl (32.0-35.9); MEAN CELL VOLUME 88.3 fl (80-96); MEAN PLT VOLUME 8.9 fl (7.5-11.1); MONO % 7.4 % (3.8-10.2); NEUT % 72.8 % (42.8-82.8); PLATELET COUNT 229 10^3/uL (134-434); RBC 4.83 M/mm3 (4.00-5.60); RDW 14.5 % (11.9-15.9); WHITE BLOOD COUNT 6.9 K/mm3 (4.0-10.0)
[2021-04-30 08:07] LABS: CALCIUM 8.9 mg/dL (8.5-10.1)
[2021-04-30 08:08] LABS: BLOOD UREA NITROGEN 15.4 mg/dL (7-18)
[2021-04-30 08:12] LABS: CREATININE 0.8 mg/dL (0.55-1.3)
[2021-04-30] MEDS ORDERED: METOPROLOL TARTRATE 25 MG TABLET (FP) PO SCH (10:00)
[2021-04-30] MEDS ORDERED: LISINOPRIL 10 MG TABLET PO SCH ×2 (10:00)
[2021-04-30] MEDS ORDERED: CETIRIZINE HCL 10 MG PO SCH (10:00)
[2021-04-30] MEDS: ASPIRIN 81 MG CHEWABLE TABLETS PO SCH (10:21)
[2021-04-30] MEDS: APIXABAN 5 MG TABLET PO SCH ×2 (10:22→21:23)
[2021-04-30] MEDS: LORATADINE 10 MG TABLET PO SCH (10:23)
[2021-04-30] MEDS: METOPROLOL TARTRATE 50 MG TABLET (FP) PO SCH ×2 (10:59→21:23)
[2021-04-30] MEDS: FLUTICASONE/UMECLIDIN/VILANTER(100-62.5-25 TRELEGY ELLIPTA) INAHLER IH SCH (11:09)
[2021-04-30] MEDS ORDERED: REGADENOSON 0.4 MG/5 ML PRE-FILLED SYRINGE IVPUSH ONE ×2 (11:39→11:45)
[2021-04-30] MEDS: LISINOPRIL 20 MG TABLET PO SCH (14:49)
[2021-04-30] MEDS ORDERED: ISOSORBIDE MONONITRATE 30 MG TAB.SR.24H (FP) PO SCH (22:00)
[2021-04-30] MEDS ORDERED: ROSUVASTATIN CA 10 MG TABLET PO SCH (22:00)
[2021-05-01] MEDS: METOPROLOL TARTRATE 50 MG TABLET (FP) PO SCH ×2 (08:30→09:40)
[2021-05-01] MEDS: LISINOPRIL 20 MG TABLET PO SCH ×2 (08:30→09:40)
[2021-05-01] MEDS: LORATADINE 10 MG TABLET PO SCH ×2 (08:30→09:40)
[2021-05-01] MEDS: ASPIRIN 81 MG CHEWABLE TABLETS PO SCH ×2 (08:31→09:40)
[2021-05-01] MEDS: APIXABAN 5 MG TABLET PO SCH ×2 (08:31→09:40)
[2021-05-01] MEDS: FLUTICASONE/UMECLIDIN/VILANTER(100-62.5-25 TRELEGY ELLIPTA) INAHLER IH SCH ×2 (08:31→09:40)
[2021-05-01 13:48] VITALS: BP 159/89; PULSE 106; TEMP 98.3
== END 2021-05-01 16:46 | disposition home or self-care (01) ==
LOC: JER 18:10 → JERBED 20:52 → J4W 23:50
PROVIDERS: ADMIT Hospitalist; ATTEND Family Medicine
PROC: 3E033NZ Introduction of Analgesics, Hypnotics, Sedatives into Peripheral Vein, Percutaneous Approach (ICD-10-PCS; principal; 2021-04-29)
PROC: 3E033GC Introduction of Other Therapeutic Substance into Peripheral Vein, Percutaneous Approach (ICD-10-PCS; 2021-04-29)
PROC: 3E0337Z Introduction of Electrolytic and Water Balance Substance into Peripheral Vein, Percutaneous Approach (ICD-10-PCS; 2021-04-29)
DX: I48.91 Unspecified atrial fibrillation (principal); R00.0 Tachycardia, unspecified; I11.9 Hypertensive heart disease without heart failure; G43.909 Migraine, unspecified, not intractable, without status migrainosus; J32.8 Other chronic sinusitis; J45.909 Unspecified asthma, uncomplicated; K21.9 Gastro-esophageal reflux disease without esophagitis; Z86.73 Personal history of transient ischemic attack (TIA), and cerebral infarction without residual deficits; I24.9 Acute ischemic heart disease, unspecified; Z79.01 Long term (current) use of anticoagulants; R94.31 Abnormal electrocardiogram [ECG] [EKG]
CPT/HCPCS: 36415; 71045-TC-FY; 78452-TC; 80048; 80053; 80061; 82340; 82384; 82533; 82570; 83036; 84156; 84244; 84439; 84443; 84481; 84484; 84585; 85025; 93005; 93010; 93017; 93306-TC; 96374; 96375; 99285-25; A9502; C9803; G0378; J2785; U0003; U0005

== ENCOUNTER 2021-09-23 12:40 | Emergency (ER) | payer SELFPAY ==
[2021-09-23 12:52] VITALS: BP 157/80; PULSE 81; RESP 18; TEMP 97.8; BMI 26.6
[2021-09-23] MEDS ORDERED: DIPHTH,PERTUSS(ACELL),TET 0.5 ML DISP.SYRIN IM ONE ×2 (13:07→13:10)
== END 2021-09-23 14:05 | disposition home or self-care (01) ==
LOC: FER 12:40
PROC: 3E0234Z Introduction of Serum, Toxoid and Vaccine into Muscle, Percutaneous Approach (ICD-10-PCS; principal; 2021-09-23)
DX: S69.91XA Unspecified injury of right wrist, hand and finger(s), initial encounter (principal); W26.8XXA Contact with other sharp object(s), not elsewhere classified, initial encounter
CPT/HCPCS: 90715; 99282-25

== ENCOUNTER 2022-04-28 09:05 | Emergency (ER) | payer OTHER ==
[2022-04-28 09:21] VITALS: PULSE 57; RESP 16; TEMP 97.7; BMI 27.9
[2022-04-28] MEDS ORDERED: amLODIPine BESYLATE 10 MG TABLET (FP) PO ONE (09:35)
[2022-04-28] MEDS ORDERED: amLODIPine BESYLATE 5 MG TABLET (FP) ONE (09:38)
[2022-04-28] MEDS ORDERED: amLODIPine BESYLATE 5 MG TABLET (FP) PO ONE ×2 (09:41→11:05)
[2022-04-28 10:22] LABS: HEMATOCRIT 44.7 % (35.4-49); HEMOGLOBIN 15.6 G/dL (11.7-16.9); MCH 30.8 pg (25.7-33.7); MEAN CELL VOLUME 88.1 fl (80-96); MEAN PLT VOLUME 8.5 fl (7.5-11.1); PLATELET COUNT 207.9 10^3/uL (134-434); RBC 5.07 10^6/uL (4.00-5.60); RDW 13.7 % (11.9-15.9); WHITE BLOOD COUNT 7.7 10^3/uL (4.0-10.8)
[2022-04-28 10:33] LABS: BILIRUBIN,TOTAL 0.8 mg/dl (0.2-1); CREATININE 0.8 mg/dl (0.55-1.3); TOT PROT 6.8 g/dl (6.4-8.2)
[2022-04-28] MEDS ORDERED: HYDROCHLOROTHIAZIDE 25 MG TABLET (FP) PO ONE (11:05)
[2022-04-28] MEDS ORDERED: HYDROCHLOROTHIAZIDE 25 MG TABLET (FP) ONE (11:13)
[2022-04-28 12:16] VITALS: BP 165/114
[2022-04-28 12:38] LABS: PLATELET ESTIMATE ADEQUATE
== END 2022-04-28 12:40 | disposition home or self-care (01) ==
LOC: FER 09:05
DX: I10 Essential (primary) hypertension (principal)
CPT/HCPCS: 36415; 71046-TC-FY; 80053; 81003; 84484; 85027; 93005; 99285-25

== ENCOUNTER 2022-06-01 16:00 | Emergency (ER) | payer OTHER ==
[2022-06-01 16:14] VITALS: BP 159/89; PULSE 86; RESP 18; TEMP 97.9; BMI 28.3
== END 2022-06-01 17:20 | disposition home or self-care (01) ==
LOC: FER 16:00
DX: S43.422A Sprain of left rotator cuff capsule, initial encounter (principal); X50.9XXA Other and unspecified overexertion or strenuous movements or postures, initial encounter; Y93.K1 Activity, walking an animal
CPT/HCPCS: 73030-TC-LT-FY; 99283-25

== ENCOUNTER 2022-09-28 10:51 | Emergency (ER) | payer SELFPAY ==
[2022-09-28 11:01] VITALS: BP 158/94; PULSE 90; RESP 18; TEMP 98; BMI 28.8
== END 2022-09-28 11:11 | disposition home or self-care (01) ==
LOC: FER 10:51
DX: H60.332 Swimmer's ear, left ear (principal); H92.02 Otalgia, left ear; H92.12 Otorrhea, left ear
CPT/HCPCS: 99283-25

== ENCOUNTER 2023-02-11 07:34 | Emergency (ER) | payer OTHER ==
[2023-02-11 07:39] VITALS: BP 137/81; PULSE 106; RESP 16; TEMP 98.2; BMI 28.5
[2023-02-11] MEDS ORDERED: predniSONE 20 MG TABLET (UD) PO ONE (07:50)
[2023-02-11] MEDS ORDERED: predniSONE 20 MG TABLET (UD) ONE (08:09)
[2023-02-11] MEDS ORDERED: ALBUTEROL SO4 2.5/IPRATROPIUM 0.5 INH SOL 3 ML VIAL.NEB. NEB ONE (08:10)
[2023-02-11] MEDS: ALBUTEROL SO4 2.5/IPRATROPIUM 0.5 INH SOL 3 ML VIAL.NEB. NEB SCH ×4 (08:36→08:52)
[2023-02-11 09:14] LABS: HEMATOCRIT 49.1 % (35.4-49); HEMOGLOBIN 16.5 G/dL (11.7-16.9); MCH 30.1 pg (25.7-33.7); MCHC 33.7 g/dl (32.0-35.9); MEAN CELL VOLUME 89.5 fl (80-96); MEAN PLT VOLUME 9.1 fl (7.5-11.1); PLATELET COUNT 211.9 10^3/uL (134-434); RBC 5.49 10^6/uL (4.00-5.60); RDW 14.4 % (11.9-15.9); WHITE BLOOD COUNT 25.6 10^3/uL (4.0-10.8)
[2023-02-11 09:19] LABS: ALBUMIN 4.5 g/dl (3.4-5.0); BILIRUBIN,TOTAL 1.3 mg/dl (0.2-1); CALCIUM 9.5 mg/dl (8.5-10.1); CREATININE 1.1 mg/dl (0.6-1.3); POTASSIUM 4.9 mmol/L (3.5-5.1); TOT PROT 6.7 g/dl (6.4-8.2)
[2023-02-11 09:39] LABS: PLATELET ESTIMATE ADEQUATE
== END 2023-02-11 10:43 | disposition home or self-care (01) ==
LOC: FER 07:34
PROC: 3E03329 Introduction of Other Anti-infective into Peripheral Vein, Percutaneous Approach (ICD-10-PCS; principal; 2023-02-11)
PROC: 3E0F7GC Introduction of Other Therapeutic Substance into Respiratory Tract, Via Natural or Artificial Opening (ICD-10-PCS; 2023-02-11)
DX: R05.9 Cough, unspecified (principal); R50.9 Fever, unspecified; J44.1 Chronic obstructive pulmonary disease with (acute) exacerbation; J18.9 Pneumonia, unspecified organism; E80.7 Disorder of bilirubin metabolism, unspecified; Z20.822 Contact with and (suspected) exposure to COVID-19
CPT/HCPCS: 0241U-QW; 36415; 71046-TC-FY; 80053; 83880; 84484; 85027; 93005; 99285-25

== ENCOUNTER 2023-05-13 17:25 | Inpatient (IN) | payer OTHER ==
[2023-05-13] MEDS ORDERED: MIDAZOLAM HCL 2 MG/2 ML SINGLE DOSE VIAL ONE ×2 (17:38→22:05)
[2023-05-13] MEDS: LABETALOL HCL 5 MG/1 ML (100MG/20 ML VIAL) IVPUSH ONE ×2 (18:15→18:45)
[2023-05-13] MEDS ORDERED: LABETALOL HCL 20 MG/4 ML VIAL ONE (18:15)
[2023-05-13] MEDS: MIDAZOLAM HCL 2 MG/2 ML SINGLE DOSE VIAL IVPUSH ONE ×2 (18:21→23:50)
[2023-05-13 18:36] LABS: BASO % 0.6 % (0-2.0); EOS % 0.5 % (0-4.5); HEMATOCRIT 44.4 % (35.4-49); MCHC 33.7 g/dl (32.0-35.9); MEAN CELL VOLUME 88.9 fl (80-96); MEAN PLT VOLUME 8.6 fl (7.5-11.1); MONO % 5.6 % (3.8-10.2); NEUT % 78.3 % (42.8-82.8); PLATELET COUNT 242 10^3/uL (134-434); RBC 4.99 M/mm3 (4.00-5.60); RDW 14.1 % (11.9-15.9)
[2023-05-13 18:37] LABS: INR 1.01 (0.83-1.09); PROTHROMBIN TIME (PATIENT) 11.7 SEC (9.7-13.0)
[2023-05-13] MEDS: ASPIRIN 325 MG TABLET PO ONE (18:38)
[2023-05-13] MEDS ORDERED: ASPIRIN 81 MG CHEWABLE TABLETS ONE (18:38)
[2023-05-13 18:40] LABS: ACTIVATED PTT 27.6 SECONDS (25.2-36.5)
[2023-05-13 18:58] LABS: POTASSIUM 4.4 mmol/L (3.5-5.1)
[2023-05-13 19:01] LABS: ALBUMIN 3.8 g/dl (3.4-5.0); BLOOD UREA NITROGEN 17.9 mg/dL (7-18)
[2023-05-13 19:04] LABS: CREATININE 1.1 mg/dL (0.55-1.3)
[2023-05-13 19:05] LABS: BILIRUBIN,TOTAL 0.7 mg/dL (0.2-1); TOT PROT 6.9 g/dl (6.4-8.2)
[2023-05-13] MEDS: NICARDIPINE 25 MG in DEXTROSE 5%-WATER - 240 ML IVPB SCH (19:22)
[2023-05-13] MEDS: ACETAMINOPHEN 1000 MG/100 ML BAG IVPB ONE (20:19)
[2023-05-13 20:22] LABS: URINE APPEARANCE CLEAR; URINE BILIRUBIN NEGATIVE (NEGATIVE); URINE COLOR YELLOW; URINE GLUCOSE (UA) TRACE (NEGATIVE); URINE KETONE NEGATIVE (NEGATIVE); URINE LEUK ESTERASE NEGATIVE (NEGATIVE); URINE NITRITE NEGATIVE (NEGATIVE); URINE PROTEIN NEGATIVE (NEGATIVE); URINE UROBILINOGEN 0.2 mg/dL (0.2-1.0)
[2023-05-13] MEDS: DEXMEDETOMIDINE PREMIX 400 MCG/100 ML BAG IVPB SCH (21:00)
[2023-05-13 21:13] LABS: MAGNESIUM 2.1 mg/dL (1.8-2.4)
[2023-05-13 21:17] LABS: PHOSPHOROUS 3.2 mg/dL (2.5-4.9)
[2023-05-13] MEDS ORDERED: HALOPERIDOL LACTATE 5 MG/ML ONE (22:11)
[2023-05-13] MEDS: CHLORHEXIDINE GLUCONATE 4% CLEANSER FOR DECOLONIZATION TP SCH (22:17)
[2023-05-13] MEDS: MUPIROCIN 2% TOPICAL OINTMENT FOR DECOLONIZATION NS SCH (22:18)
[2023-05-13 22:38] LABS: METHADONE, UR NEGATIVE (NEGATIVE); PHENCYCLIDINE,URINE NEGATIVE (NEGATIVE); URINE BARBITURATES NEGATIVE (NEGATIVE)
[2023-05-13 22:39] LABS: OPIATES, URI NEGATIVE (NEGATIVE)
[2023-05-13 22:41] LABS: COCAINE, UR NEGATIVE (NEGATIVE); URINE AMPHETAMINES NEGATIVE (NEGATIVE); URINE BENZODIAZEPINES POSITIVE (NEGATIVE)
[2023-05-13] MEDS: HALOPERIDOL LACTATE 5 MG/ML IVPUSH ONE (23:50)
[2023-05-14] MEDS: ACETAMINOPHEN 1000 MG/100 ML BAG IVPB ONE (06:17)
[2023-05-14 06:25] LABS: BASO % 0.3 % (0-2.0); EOS % 0.1 % (0-4.5); HEMATOCRIT 46.2 % (35.4-49); HEMOGLOBIN 15.6 GM/dL (11.7-16.9); LYMPH % 6.5 % (8-40); MCH 29.7 pg (25.7-33.7); MCHC 33.7 g/dl (32.0-35.9); MEAN CELL VOLUME 88.2 fl (80-96); MEAN PLT VOLUME 8.8 fl (7.5-11.1); MONO % 5.1 % (3.8-10.2); PLATELET COUNT 218 10^3/uL (134-434); RBC 5.23 M/mm3 (4.00-5.60); RDW 13.5 % (11.9-15.9); WHITE BLOOD COUNT 12.9 K/mm3 (4.0-10.0)
[2023-05-14 06:49] LABS: POTASSIUM 4.3 mmol/L (3.5-5.1)
[2023-05-14 06:55] LABS: ALBUMIN 3.8 g/dl (3.4-5.0); CALCIUM 9.2 mg/dL (8.5-10.1); MAGNESIUM 1.8 mg/dL (1.8-2.4)
[2023-05-14 06:58] LABS: CREATININE 0.9 mg/dL (0.55-1.3); PHOSPHOROUS 3.1 mg/dL (2.5-4.9)
[2023-05-14 06:59] LABS: BILIRUBIN,TOTAL 1.1 mg/dL (0.2-1); TOT PROT 6.9 g/dl (6.4-8.2)
[2023-05-14] MEDS ORDERED: TRIMETHOBENZAMIDE HCL 200MG/2ML INJ IM PRN (09:05)
[2023-05-14] MEDS: ENOXAPARIN NA (PORCINE) 40 MG/0.4 ML DISP.SYRIN SQ SCH ×2 (09:21→21:31)
[2023-05-14 10:01] LABS: INR 1.15 (0.83-1.09); PROTHROMBIN TIME (PATIENT) 13.3 SEC (9.7-13.0)
[2023-05-14 10:04] LABS: ACTIVATED PTT 26.4 SECONDS (25.2-36.5)
[2023-05-14] MEDS: INSULIN ASPART SLIDING SCALE (NOVOLOG) 1 VIAL SQ SCH ×2 (10:29→11:44)
[2023-05-14] MEDS ORDERED: ALBUTEROL SO4 HFA INHALER IH PRN (10:50)
[2023-05-14] MEDS ORDERED: HALOPERIDOL LACTATE 5 MG/ML ONE (11:12)
[2023-05-14] MEDS: HALOPERIDOL LACTATE 5 MG/ML IM ONE (11:44)
[2023-05-14] MEDS: FLUTICASONE/UMECLIDIN/VILANTER(200-62.5-25 TRELEGY ELLIPTA) INAHLER IH SCH ×2 (12:25)
[2023-05-14] MEDS: PANTOPRAZOLE SODIUM 40 MG VIAL IVPUSH SCH (15:01)
[2023-05-14] MEDS: HALOPERIDOL LACTATE 5 MG/ML IM PRN (19:36)
[2023-05-14] MEDS ORDERED: ENOXAPARIN NA (PORCINE) 40 MG/0.4 ML DISP.SYRIN SQ SCH ×2 (22:00)
[2023-05-14] MEDS ORDERED: MIDAZOLAM HCL 2 MG/2 ML SINGLE DOSE VIAL ONE (22:05)
[2023-05-14] MEDS: MIDAZOLAM HCL 2 MG/2 ML SINGLE DOSE VIAL IVPUSH ONE (22:15)
[2023-05-15] MEDS: hydrALAZINE HCL 20 MG/ML VIAL IVPUSH PRN (03:06)
[2023-05-15] MEDS ORDERED: INSULIN (NOVOLOG) ASPART 100 UNITS/ML 10ML VIAL ONE ×3 (06:23→21:25)
[2023-05-15 06:33] LABS: HEMATOCRIT 44.9 % (35.4-49); HEMOGLOBIN 15.1 GM/dL (11.7-16.9); MCH 29.5 pg (25.7-33.7); MCHC 33.7 g/dl (32.0-35.9); MEAN CELL VOLUME 87.6 fl (80-96); MEAN PLT VOLUME 8.7 fl (7.5-11.1); PLATELET COUNT 211 10^3/uL (134-434); RBC 5.13 M/mm3 (4.00-5.60); RDW 13.6 % (11.9-15.9); WHITE BLOOD COUNT 11.2 K/mm3 (4.0-10.0)
[2023-05-15 06:50] LABS: POTASSIUM 3.7 mmol/L (3.5-5.1)
[2023-05-15 06:55] LABS: CALCIUM 8.7 mg/dL (8.5-10.1)
[2023-05-15 06:56] LABS: ALBUMIN 3.4 g/dl (3.4-5.0); BLOOD UREA NITROGEN 21.7 mg/dL (7-18); MAGNESIUM 1.8 mg/dL (1.8-2.4)
[2023-05-15 06:58] LABS: CREATININE 0.9 mg/dL (0.55-1.3)
[2023-05-15 06:59] LABS: PHOSPHOROUS 2.8 mg/dL (2.5-4.9)
[2023-05-15 07:00] LABS: BILIRUBIN,TOTAL 1.1 mg/dL (0.2-1); TOT PROT 6.3 g/dl (6.4-8.2)
[2023-05-15] MEDS: PANTOPRAZOLE 40 MG TABLET PO SCH (09:24)
[2023-05-15] MEDS: ENOXAPARIN NA (PORCINE) 100 MG/1 ML DISP.SYRIN SQ SCH (09:24)
[2023-05-15] MEDS: LISINOPRIL 5 MG TABLET PO ONE (09:58)
[2023-05-15] MEDS ORDERED: LISINOPRIL 5 MG TABLET PO SCH ×2 (10:00)
[2023-05-15] MEDS: LOSARTAN POTASSIUM 25 MG TABLET PO SCH (11:04)
[2023-05-15] MEDS: INSULIN ASPART SLIDING SCALE (NOVOLOG) 1 VIAL SQ SCH (11:08)
[2023-05-15] MEDS: LEVALBUTEROL HCL 0.31 MG/3 ML VIAL.NEB IH ONE (14:19)
[2023-05-15] MEDS: BENZOCAINE/MENTH/CETYLPYRD CL 1 EACH LOZENGE MM PRN (14:19)
[2023-05-15 14:24] VITALS: BMI 27.5
[2023-05-15] MEDS: METOPROLOL TARTRATE 5 MG/5 ML VIAL IVPUSH ONE ×2 (15:05→18:13)
[2023-05-15] MEDS: LOSARTAN POTASSIUM 25 MG TABLET PO ONE (18:13)
[2023-05-15] MEDS ORDERED: LORazepam 2 MG TABLET PO ONE (20:16)
[2023-05-15] MEDS: METOPROLOL TARTRATE 50 MG TABLET (FP) PO SCH (21:26)
[2023-05-15] MEDS: APIXABAN 5 MG TABLET PO SCH (21:27)
[2023-05-16] MEDS: LORazepam 1 MG TABLET PO ONE (00:40)
[2023-05-16 06:35] LABS: HEMATOCRIT 45.4 % (35.4-49); HEMOGLOBIN 15.2 GM/dL (11.7-16.9); MCH 29.4 pg (25.7-33.7); MCHC 33.4 g/dl (32.0-35.9); MEAN PLT VOLUME 9.1 fl (7.5-11.1); PLATELET COUNT 217 10^3/uL (134-434); RBC 5.16 M/mm3 (4.00-5.60); RDW 13.7 % (11.9-15.9); WHITE BLOOD COUNT 11.9 K/mm3 (4.0-10.0)
[2023-05-16 06:53] LABS: POTASSIUM 3.9 mmol/L (3.5-5.1)
[2023-05-16 06:58] LABS: CALCIUM 8.8 mg/dL (8.5-10.1)
[2023-05-16 06:59] LABS: ALBUMIN 3.4 g/dl (3.4-5.0); BLOOD UREA NITROGEN 21.4 mg/dL (7-18)
[2023-05-16 07:02] LABS: CREATININE 0.8 mg/dL (0.55-1.3); PHOSPHOROUS 2.6 mg/dL (2.5-4.9)
[2023-05-16 07:03] LABS: BILIRUBIN,TOTAL 1.3 mg/dL (0.2-1); TOT PROT 6.5 g/dl (6.4-8.2)
[2023-05-16] MEDS: LOSARTAN POTASSIUM 25 MG TABLET PO SCH (09:06)
[2023-05-16] MEDS: metFORMIN HCL 500 MG TABLET (FP) PO SCH (09:06)
[2023-05-17] MEDS ORDERED: ALBUTEROL SO4 HFA INHALER IH PRN (08:32)
[2023-05-17] MEDS ORDERED: HALOPERIDOL LACTATE 5 MG/ML IM PRN (08:32)
[2023-05-17] MEDS ORDERED: BENZOCAINE/MENTH/CETYLPYRD CL 1 EACH LOZENGE MM PRN (08:32)
[2023-05-17] MEDS: APIXABAN 5 MG TABLET PO SCH (09:14)
[2023-05-17] MEDS: LOSARTAN POTASSIUM 25 MG TABLET PO SCH (09:15)
[2023-05-17] MEDS: METOPROLOL TARTRATE 50 MG TABLET (FP) PO SCH (09:15)
[2023-05-17] MEDS: PANTOPRAZOLE 40 MG TABLET PO SCH (09:15)
[2023-05-17] MEDS: LOSARTAN POTASSIUM 50 MG TABLET PO ONE (11:33)
[2023-05-17] MEDS: INSULIN ASPART SLIDING SCALE (NOVOLOG) 1 VIAL SQ SCH (11:44)
[2023-05-17] MEDS: FLUTICASONE/UMECLIDIN/VILANTER(200-62.5-25 TRELEGY ELLIPTA) INAHLER IH SCH (12:44)
[2023-05-17] MEDS: ALPRAZolam 0.25 MG TABLET PO ONE (14:36)
[2023-05-17] MEDS: MELATONIN 1 MG TABLET PO SCH (22:05)
[2023-05-18] MEDS: hydrALAZINE HCL 25 MG TABLET (FP) PO PRN (06:10)
[2023-05-18] MEDS: metFORMIN HCL 500 MG TABLET (FP) PO SCH (06:10)
[2023-05-18 08:57] VITALS: BP 155/99; PULSE 104; RESP 20; TEMP 98
[2023-05-18] MEDS: amLODIPine BESYLATE 5 MG TABLET (FP) PO SCH (09:00)
[2023-05-18] MEDS: LOSARTAN POTASSIUM 25 MG TABLET PO SCH (09:01)
== END 2023-05-18 10:20 | disposition home or self-care (01) | DRG 199 ==
LOC: JER 17:25 → JERBED 19:56 → JICU 20:36 → J5S 05-16 19:23
PROVIDERS: ADMIT Family Medicine; ATTEND Family Medicine
DX: I16.1 Hypertensive emergency (principal); I67.4 Hypertensive encephalopathy; J84.9 Interstitial pulmonary disease, unspecified; F30.9 Manic episode, unspecified; I48.91 Unspecified atrial fibrillation; I50.22 Chronic systolic (congestive) heart failure; R47.01 Aphasia; E11.65 Type 2 diabetes mellitus with hyperglycemia; F43.10 Post-traumatic stress disorder, unspecified; G43.909 Migraine, unspecified, not intractable, without status migrainosus; G47.33 Obstructive sleep apnea (adult) (pediatric); J45.909 Unspecified asthma, uncomplicated; K21.9 Gastro-esophageal reflux disease without esophagitis; F41.9 Anxiety disorder, unspecified
CPT/HCPCS: 0241U-QW; 36415; 70450-TC; 70496-TC; 70498-TC; 70544-TC; 70551-TC; 80053; 80061; 80307; 81003; 82533; 82607; 82962; 83036; 83735; 84100; 84436; 84443; 84479; 84484; 85025; 85027; 85610; 85730; 86780; 86850; 86900; 86901; 87040; 87086; 93005; 93010; 93306-TC; 94660; 97116-GP; 97162-GP; 99285-25; J0131; Q9967